=== PATIENT | female | born 1950 | race Caucasian/White ===

== ENCOUNTER → 2016-11-05 | Outpatient (CLI) | payer MEDICARE, OTHER ==
--- NOTE | ~2016-11-05 | CR63 ---
[facility] A Service of [facility] & [facility] RADIOLOGY TEXT RESULTS PATIENT: BRIAN WOLFE LOCATION: [facility] : 52 UNIT #: [id number] AGE: [address]: Kathryn Garner MD SEX: F ORDER DR: [id number] [facility] [address]. [place], [place] [address] [id number] O MR#: [id number] Acc #: [id number] NAME: BRIAN WOLFE : 1950 SEX: F STUDY DATE/TIME: 11/05/2016 9:51 UNIT: [facility] ROOM: STUDY DESCRIPTION: CR Chest 2 View Attending Physician: Kathryn Garner M.D. Referring Physician: Kathryn Garner M.D. Ordering Physician: Kathryn Garner M.D. Primary Care Physician: Kathryn Garner M.D. MEDICAL IMAGING REPORT This report is preliminary unless electronic signature is present EXAM Chest 11/05/2016 [facility] [place]. HISTORY 66-year-old woman; short of air, dyspnea on exertion x1 year. High blood pressure. Symptoms worsening past 1-2 weeks. COMPARISON Comparison chest none. FINDINGS PA and lateral chest views show normal cardiac size and configuration. Hilar structures and mediastinal contours are preserved. Lungs are expanded and clear bilaterally. Costophrenic angles are preserved. Moderate thoracic dextroscoliosis. IMPRESSION Negative chest. No acute finding. Thoracic scoliosis present. Dictated by... Kris Trimble M.D. THIS IS AN ELECTRONICALLY VERIFIED REPORT Kris Trimble M.D. at 11/05/2016 1:57 PM Jose TD: 11/05/2016 11:24 JOB #: [id number] MEDICAL IMAGING REPORT Page 1 of 1 COPY
--- NOTE | ~2016-11-05 | PFT ---
[id number] [facility] [address] [place], [place] [address] [id number] O MR#: [id number] NAME: BRIAN WOLFE ROOM: SEX: F STUDY DATE/TIME: 11/08/2016 : 1950 AGE: 66 STUDY DESCRIPTION: Attending Physician: Kathryn Garner M.D. Referring Physician: Kathryn Garner M.D. Primary Care Physician: Kathryn Garner M.D. PULMONARY DIAGNOSTIC REPORT EXAM PFT. FINDINGS Spirometry is normal. There is no significant response to bronchodilators. Flow volume loop is fairly unremarkable. Inspiratory limb is somewhat flattened, which can be seen in upper airway obstruction. Lung volumes are fairly unremarkable. ERV is reduced, which can be seen in obesity. Diffusion capacity is normal. If the patient has unexplained shortness of breath, consider evaluation for upper airway sources. Dictated by... Samir Millan M.D. Navdeep TD: 11/08/2016 13:29 JOB #: [id number] PULMONARY DIAGNOSTIC REPORT Page 1 of 1
== END | disposition home or self-care (01) ==
LOC: CRC 09:00
DX: R06.02 Shortness of breath (principal); R06.09 Other forms of dyspnea; R05 Cough; Z72.0 Tobacco use; M41.9 Scoliosis, unspecified
CPT/HCPCS: 71020; 93306; 94060; 94726; 94729